=== PATIENT | male | born 1950 | race Caucasian/White ===

== ENCOUNTER 2019-10-30 10:22 | Emergency (ER) | payer BC, MEDICARE ==
[2019-10-30 10:34] VITALS: BP 146/83; PULSE 71
[2019-10-30] MEDS ORDERED: Tetracaine HCl/PF 0.5% 4 ML Bottle EYERT ONE (10:50)
--- NOTE | 2019-10-30 10:50 | EDM.PDOC ---
ED HPI GENERAL MEDICAL PROBLEM - General Chief Complaint: Eye Problems Stated Complaint: EYE COMPLAINT Time Seen by Provider: 10/30/19 10:26 Source of Information: Reports: Patient History Limitations: Reports: No Limitations - History of Present Illness INITIAL COMMENTS - FREE TEXT/NARRATIVE: Since reporting some redness in his right eye with a little pressure feeling and photophobia. No vision problems, discharge. He has noticed that he is starting with cold symptoms including cough and sore throat. - Related Data Allergies Allergy/AdvReac Type Severity Reaction Status Date / Time penicillin Allergy Hives Verified 05/30/15 13:52 Home Meds: Home Meds Fish Oil/[place]-3 Fatty Acids [Fish Oil 1,000 MG] 1 tab PO DAILY 11/14/15 [ History] Indomethacin 1 tab PO ASDIRECTED PRN 11/14/15 [History] allopurinoL [Zyloprim] 1 tab PO DAILY 11/14/15 [History] Diclofenac Potassium [Zipsor] 10/30/19 [History] Yrn/Polymyx B Sulf/Dexameth [Kfabpq-Iqexx-Klygwkxy Eye Drop] 3 drop OP QID #1 drops.susp 10/30/19 [Rx] Past Medical History Cardiovascular History: Reports: None Respiratory History: Reports: Asthma Other Respiratory History: asthma as a child Gastrointestinal History: Reports: Other (See Below) Other Gastrointestinal History: hx anal fissurectomy Genitourinary History: Reports: BPH Musculoskeletal History: Reports: Gout Neurological History: Reports: None Psychiatric History: Reports: None Endocrine/Metabolic History: Reports: None Hematologic History: Reports: None Immunologic History: Reports: None Oncologic (Cancer) History: Reports: None Dermatologic History: Reports: None - Past Surgical History Other HEENT Surgeries/Procedures: hx repair of fx jaw Musculoskeletal Surgical History: Reports: Other (See Below) Social & Family History - Family History Family Medical History: Noncontributory - Tobacco Use Smoking Status *Q: Never Smoker - Recreational Drug Use Recreational Drug Use: No ED ROS GENERAL - Review of Systems Review Of Systems: Comprehensive ROS is negative, except as noted in HPI. ED EXAM GENERAL W FULL EYE - Physical Exam Exam: See Below Exam Limited By: No Limitations General Appearance: Alert, No Apparent Distress Visual Acuity (R) 20/: 20 Visual Acuity (L) 20/: 20 Eyelids: Bilateral: Normal Appearance Conjunctiva & Sclera: Right: Injected, Left: Normal Appearance Cornea Exam: Right: Corneal Abrasion, Examined with Flourescein (Abrasion 3:00 to 9:00 under the iris), Left: Normal Appearance Extraocular Movements: Bilateral: Intact Pupillary Size: Bilateral: 4 mm Pupillary Reaction: Bilateral: Brisk Ears: Normal External Exam, Normal TMs Nose: Normal Inspection Throat/Mouth: Normal Inspection Head: Atraumatic, Normocephalic Neck: Normal Inspection Respiratory/Chest: No Respiratory Distress, Lungs Clear, Normal Breath Sounds Cardiovascular: Regular Rate, Rhythm Neurological: Alert, Oriented Psychiatric: Normal Affect, Normal Mood Skin Exam: Warm, Dry, Intact, Normal Color, No Rash Lymphatic: No Adenopathy Course - Vital Signs Last Recorded V/S: Last Vital Signs Temp 35.3 C 10/30/19 10:32 Pulse 71 10/30/19 10:32 Resp 16 10/30/19 10:32 BP 146/83 H 10/30/19 10:32 Pulse Ox 98 10/30/19 10:32 Departure - Departure Time of Disposition: 11:13 Disposition: Home, Self-Care 01 Condition: Good Clinical Impression: Corneal abrasion Conjunctivitis Qualifiers: Conjunctivitis type: acute Acute conjunctivitis type: unspecified Laterality: right Qualified Code(s): H10.31 - Unspecified acute conjunctivitis, right eye - Discharge Information *PRESCRIPTION DRUG MONITORING PROGRAM REVIEWED*: Not Applicable *COPY OF PRESCRIPTION DRUG MONITORING REPORT IN PATIENT TONO: Not Applicable Referrals: Tevin Monreal MD [Primary Care Provider] - [facility] [Outside] Additional Instructions: The following information is given to patients seen in the emergency department who are being discharged to home. This information is to outline your options for follow-up care. We provide all patients seen in our emergency department with a follow-up referral. The need for follow-up, as well as the timing and circumstances, are variable depending upon the specifics of your emergency department visit. If you don't have a primary care physician on staff, we will provide you with a referral. We always advise you to contact your personal physician following an emergency department visit to inform them of the circumstance of the visit and for follow-up with them and/or the need for any referrals to a consulting specialist. The emergency department will also refer you to a specialist when appropriate. This referral assures that you have the opportunity for follow-up care with a specialist. All of these measure are taken in an effort to provide you with optimal care, which includes your follow-up. Under all circumstances we always encourage you to contact your private physician who remains a resource for coordinating your care. When calling for follow-up care, please make the office aware that this follow-up is from your recent emergency room visit. If for any reason you are refused follow-up, please contact the [facility] Emergency Department at and asked to speak to the emergency department charge nurse. 1. Eyedrops 3 drops right eye 4 times a day 2. Increasing pain, discharge or visual problems return to ER promptly 3. If not greatly improved by Friday, see an graphic art sales representative Sepsis Event Note - Evaluation Sepsis Screening Result: No Definite Risk - Focused Exam Vital Signs: Vital Signs Temp Pulse Resp BP Pulse Ox 10/30/19 10:32 35.3 C 71 16 146/83 H 98 Date Exam was Performed: 10/30/19 Time Exam was Performed: 10:45
== END 2019-10-30 11:29 | disposition home or self-care (01) ==
LOC: MW.ED 10:22
DX: S05.01XA Injury of conjunctiva and corneal abrasion without foreign body, right eye, initial encounter (principal); H10.31 Unspecified acute conjunctivitis, right eye; M10.9 Gout, unspecified; Z88.0 Allergy status to penicillin; Z79.899 Other long term (current) drug therapy; X58.XXXA Exposure to other specified factors, initial encounter
CPT/HCPCS: 99283

== ENCOUNTER 2020-09-01 08:21 | Emergency (ER) | payer BC ==
--- NOTE | 2020-09-01 08:28 | EDM.PDOC ---
ED HPI GENERAL MEDICAL PROBLEM - General Chief Complaint: Neuro Symptoms/Deficits Stated Complaint: DIZZINESS/TINGLING L/ ARM Time Seen by Provider: 09/01/20 08:21 Source of Information: Reports: Patient History Limitations: Reports: No Limitations - History of Present Illness INITIAL COMMENTS - FREE TEXT/NARRATIVE: 69-year-old male no past medical history presents for episode of left hand tingling and episode of lightheadedness, near syncope on toilet this morning. Patient states that yesterday after work, he noted a numbness tingling sensation in his left fifth and fourth digit lasting about 10 minutes. No associated muscle weakness. No pain. Symptoms went away on their own. This morning after having a bowel movement, while sitting on the toilet, patient had episode of feeling lightheaded, blurring of vision, and unsteady when standing. He sat back down and did not lose consciousness. He denies associated chest pain, shortness of breath, fevers, cough, one-sided weakness, slurred speech, altered mental status, confusion. He notes that he is still feeling a little numbness and tingling in his left fourth and fifth digits. He notes that he recently started taking potassium, zinc, and vitamin D [id number] supplements - Related Data Allergies Allergy/AdvReac Type Severity Reaction Status Date / Time penicillin Allergy Hives Verified 09/01/20 08:48 Home Meds: Home Meds Fish Oil/[place]-3 Fatty Acids [Fish Oil 1,000 MG] 1 tab PO DAILY 11/14/15 [History] Indomethacin 1 tab PO ASDIRECTED PRN 11/14/15 [History] allopurinoL [Zyloprim] 1 tab PO DAILY 11/14/15 [History] Diclofenac Potassium [Zipsor] 10/30/19 [History] Past Medical History Cardiovascular History: Reports: None Respiratory History: Reports: Asthma Other Respiratory History: asthma as a child Gastrointestinal History: Reports: Other (See Below) Other Gastrointestinal History: hx anal fissurectomy Genitourinary History: Reports: BPH Musculoskeletal History: Reports: Gout Neurological History: Reports: None Psychiatric History: Reports: None Endocrine/Metabolic History: Reports: None Hematologic History: Reports: None Immunologic History: Reports: None Oncologic (Cancer) History: Reports: None Dermatologic History: Reports: None - Past Surgical History Other HEENT Surgeries/Procedures: hx repair of fx jaw Musculoskeletal Surgical History: Reports: Other (See Below) Social & Family History - Family History Family Medical History: Noncontributory ED ROS GENERAL - Review of Systems Review Of Systems: Comprehensive ROS is negative, except as noted in HPI. ED EXAM, GENERAL - Physical Exam Exam: See Below Exam Limited By: No Limitations General Appearance: Alert, WD/WN, No Apparent Distress Eye Exam: Bilateral Eye: EOMI, PERRL Ears: Normal External Exam Nose: Normal Inspection Throat/Mouth: Normal Inspection, Normal Voice, No Airway Compromise Head: Atraumatic, Normocephalic Neck: Normal Inspection Respiratory/Chest: No Respiratory Distress, Lungs Clear, Normal Breath Sounds, No Accessory Muscle Use Cardiovascular: Normal Peripheral Pulses, Regular Rate, Rhythm, No Edema Extremities: Normal Inspection Neurological: Alert, Oriented, CN II-XII Intact, Normal Cognition, Normal Gait, No Motor/Sensory Deficits, Other (normal [id number]) Psychiatric: Normal Affect, Normal Mood Skin Exam: Warm, Dry, Intact #1 Interpretation EKG Date: 09/01/20 Time: 08:41 Rhythm: NSR Rate (Beats/Min): 70 [place]: Normal P-Wave: Present QRS: Normal ST-T: Normal QT: Normal OH/PQ Interval: 155 Comparison: NA - No Prior EKG EKG Interpretation Comments: non-ischemic electrocardiogram Course - Vital Signs Last Recorded V/S: Last Vital Signs Temp 96.1 F L 09/01/20 08:49 Pulse 77 09/01/20 08:49 Resp 20 09/01/20 08:49 BP 166/82 H 09/01/20 08:49 Pulse Ox 99 09/01/20 08:49 - Orders/Labs/Meds Orders: Active Orders 24 hr Category Date Time Status EKG 12 Lead [EKG Documentation Completion] [RC] STAT Care 09/01/20 08:58 Active Labs: Laboratory Tests 09/01/20 09/01/20 Range/Units 08:37 08:37 WBC 6.66 (4.0-11.0) K/uL RBC 4.48 L (4.50-5.90) M/uL Hgb 14.1 (13.0-17.0) g/dL Hct 42.9 (38.0-50.0) % MCV 95.8 (80.0-98.0) fL MCH 31.5 (27.0-32.0) pg MCHC 32.9 (31.0-37.0) g/dL RDW Std Deviation 50.6 (28.0-62.0) fl RDW Coeff of Eliaazr 15 (11.0-15.0) % Plt Count 356 (150-400) K/uL MPV 9.50 (7.40-12.00) fL Neut % (Auto) 58.5 (48.0-80.0) % Lymph % (Auto) 27.9 (16.0-40.0) % [place] % (Auto) 9.0 (0.0-15.0) % Eos % (Auto) 3.5 (0.0-7.0) % Baso % (Auto) 1.1 (0.0-1.5) % Neut # (Auto) 3.9 (1.4-5.7) K/uL Lymph # (Auto) 1.9 (0.6-2.4) K/uL [place] # (Auto) 0.6 (0.0-0.8) K/uL Eos # (Auto) 0.2 (0.0-0.7) K/uL Baso # (Auto) 0.1 (0.0-0.1) K/uL Nucleated RBC % 0.0 /100WBC Nucleated RBCs # 0 K/uL Sodium 138 (136-148) mmol/L Potassium 4.2 (3.5-5.1) mmol/L Chloride 105 (98-107) mmol/L Carbon Dioxide 25.5 (21.0-32.0) mmol/L BUN 11 (7.0-18.0) mg/dL Creatinine 0.9 (0.8-1.3) mg/dL Est Cr Clr Drug Dosing 82.24 mL/min Estimated GFR (MDRD) > 60.0 ml/min Glucose 102 (74-106) mg/dL Calcium 8.8 (8.5-10.1) mg/dL Magnesium 2.0 (1.8-2.4) mg/dL Total Bilirubin 0.5 (0.2-1.0) mg/dL AST 34 (15-37) IU/L ALT 35 (14-63) IU/L Alkaline Phosphatase 129 H (46-116) U/L Troponin I < 0.050 (0.000-0.056) ng/mL Total Protein 6.9 (6.4-8.2) g/dL Albumin 3.5 (3.4-5.0) g/dL Globulin 3.4 (2.6-4.0) g/dL Albumin/Globulin Ratio 1.0 (0.9-1.6) TSH 3rd Generation 2.91 (0.36-3.74) uIU/mL - Re-Assessments/Exams Free Text/Narrative Re-Assessment/Exam: 09/01/20 09:03 Patient presents with left hand tingling, lightheadedness, near syncopal episode. Patient's left hand tingling sensation is limited to the fifth digit and the medial aspect of fourth digit. This is in the distribution of the ulnar nerve, raising suspicion for a peripheral neuropathy rather than a central cause. Patient's episode on the toilet this morning is most likely secondary to a vasovagal episode. His EKG is nonischemic and without cardiac dysrhythmia. We will follow-up labs including electrolytes and troponin. We will get a head CT. If results are unremarkable, anticipate discharge with primary care physician follow-up. 09/01/20 09:50 Patient's labs and head CT are all unremarkable. Will discharge patient home with primary care physician follow-up. Return precautions were discussed at length and provided an educational handout. Departure - Departure Time of Disposition: 09:51 Disposition: Home, Self-Care 01 Condition: Good Clinical Impression: Vasovagal episode - Discharge Information Instructions: Near-Syncope, [id number] Referrals: Tevin Monreal MD [Primary Care Provider] - Forms: ED Department Discharge Additional Instructions: Your work-up in the emergency department was unremarkable. It is likely that you suffered from a vasovagal episode. You should follow up with your primary care physician for further work-up. If you experience any chest pain, difficulty breathing, episodes of passing out you should return to the emergency department for reassessment. The following information is given to patients seen in the emergency department who are being discharged to home. This information is to outline your options for follow-up care. We provide all patients seen in our emergency department with a follow-up referral. The need for follow-up, as well as the timing and circumstances, are variable depending upon the specifics of your emergency department visit. If you don't have a primary care physician on staff, we will provide you with a referral. We always advise you to contact your personal physician following an emergency department visit to inform them of the circumstance of the visit and for follow-up with them and/or the need for any referrals to a consulting specialist. The emergency department will also refer you to a specialist when appropriate. This referral assures that you have the opportunity for follow-up care with a specialist. All of these measure are taken in an effort to provide you with optimal care, which includes your follow-up. Under all circumstances we always encourage you to contact your private physician who remains a resource for coordinating your care. When calling for follow-up care, please make the office aware that this follow-up is from your recent emergency room visit. If for any reason you are refused follow-up, please contact the [facility] Emergency Department at and asked to speak to the emergency department charge nurse. Please follow up with your primary care physician. If you do not have a primary care physician, see below: [facility] [address] [place] [id number] [facility] [address] [place] [id number] Sepsis Event Note (ED) - Focused Exam Vital Signs: Vital Signs Temp Pulse Resp BP Pulse Ox 09/01/20 08:49 96.1 F L 77 20 166/82 H 99 - My Orders Last 24 Hours: My Active Orders 09/01/20 08:58 EKG 12 Lead [EKG Documentation Completion] [RC] STAT - Assessment/Plan Last 24 Hours: My Active Orders 09/01/20 08:58 EKG 12 Lead [EKG Documentation Completion] [RC] STAT
[2020-09-01 09:24] LABS: BLOOD UREA NITROGEN,BUN 11 mg/dL (7.0-18.0); CARBON DIOXIDE,CO2 25.5 mmol/L (21.0-32.0); CHLORIDE,CL 105 mmol/L (98-107); GLUCOSE RANDOM 102 mg/dL (74-106); POTASSIUM,K 4.2 mmol/L (3.5-5.1); SODIUM,NA 138 mmol/L (136-148)
--- NOTE | 2020-09-01 09:47 | CT ---
HISTORY: Left arm numbness. TECHNIQUE: Noncontrast head CT. COMPARISON: No prior. FINDINGS: There is no acute intracranial hemorrhage or acute ischemic infarct. No mass effect or midline shift. No hydrocephalus. No extra-axial collection or hematoma. No acute loss of mack-white differentiation. The mastoid air cells are clear. The paranasal sinuses are clear with the exception of a small mucous retention cyst or polyp within the left maxillary sinus posteriorly. There is no acute skull fracture. IMPRESSION: No acute intracranial disease. Dictated by Geronimo Long MD @ 09/01/2020 9:45:37 AM Please note that all CT scans at this facility use dose modulation, iterative reconstruction, and/or weight-based dosing when appropriate to reduce radiation dose to as low as reasonably achievable. Dictated by: Geronimo Long MD @ 09/01/2020 09:45:41 (Electronically Signed)
[2020-09-01 10:36] VITALS: BP 163/93; PULSE 73
== END 2020-09-01 10:37 | disposition home or self-care (01) ==
LOC: MW.ED 08:21
DX: R55 Syncope and collapse (principal); J45.909 Unspecified asthma, uncomplicated; M10.9 Gout, unspecified; Z79.899 Other long term (current) drug therapy
CPT/HCPCS: 70450; 70450-26; 80053; 83735; 84443; 84484; 85025; 93005; 93010; 99284; 99284-25

== ENCOUNTER 2020-09-02 09:37 | Observation (INO) | payer BC ==
[2020-09-02] MEDS ORDERED: LORazepam 2 MG/ML SDV IVPUSH ONE ×2 (09:58→15:23)
[2020-09-02] MEDS ORDERED: Famotidine 20 MG/2 ML SDV IVPUSH ONE (09:58)
[2020-09-02] MEDS ORDERED: Sodium Chloride 0.9% 10 ML Syringe FLUSH PRN (09:58)
[2020-09-02] MEDS ORDERED: Sodium Chloride 0.9% 1,000 ML IV ONE ×2 (09:58→11:21)
[2020-09-02] MEDS ORDERED: Ondansetron 4 MG/2 ML SDV IVPUSH ONE ×2 (09:58→15:23)
--- NOTE | 2020-09-02 10:03 | EDM.PDOC ---
ED HPI GENERAL MEDICAL PROBLEM - General Chief Complaint: Gastrointestinal Problem Stated Complaint: DIZZY VOMITING Time Seen by Provider: 09/02/20 09:40 Source of Information: Reports: Patient History Limitations: Reports: No Limitations - History of Present Illness INITIAL COMMENTS - FREE TEXT/NARRATIVE: 69-year-old male presents for dizziness, nausea, vomiting, diarrhea, abdominal cramping pains, right arm numbness and tingling. Patient was seen yesterday for dizziness and left arm tingling. Had work-up including lab work and CT head which were unremarkable. After going home, in the evening patient started to develop nausea, vomiting, diarrhea, abdominal cramping pains. This morning became severe prompting him to seek medical attention. Emesis is nonbloody. Denies fevers, cough, chest pain. - Related Data Allergies Allergy/AdvReac Type Severity Reaction Status Date / Time penicillin Allergy Hives Verified 09/02/20 09:45 Home Meds: Home Meds Fish Oil/[place]-3 Fatty Acids [Fish Oil 1,000 MG] 1 tab PO DAILY 11/14/15 [History] allopurinoL [Zyloprim] 1 tab PO DAILY 11/14/15 [History] Diclofenac Potassium [Zipsor] 10/30/19 [History] Past Medical History Cardiovascular History: Reports: None Respiratory History: Reports: Asthma Other Respiratory History: asthma as a child Gastrointestinal History: Reports: Other (See Below) Other Gastrointestinal History: hx anal fissurectomy Genitourinary History: Reports: BPH Musculoskeletal History: Reports: Gout Other Musculoskeletal History: chronic pain Neurological History: Reports: None Psychiatric History: Reports: None Endocrine/Metabolic History: Reports: None Hematologic History: Reports: None Immunologic History: Reports: None Oncologic (Cancer) History: Reports: None Dermatologic History: Reports: None - Infectious Disease History Infectious Disease History: Reports: Chicken Pox - Past Surgical History HEENT Surgical History: Reports: Tonsillectomy Other HEENT Surgeries/Procedures: hx repair of fx jaw Musculoskeletal Surgical History: Reports: Other (See Below) Social & Family History - Family History Family Medical History: Noncontributory - Tobacco Use Tobacco Use Status *Q: Never Tobacco User - Recreational Drug Use Recreational Drug Use: No ED ROS GENERAL - Review of Systems Review Of Systems: Comprehensive ROS is negative, except as noted in HPI. ED EXAM, GENERAL - Physical Exam Exam: See Below Exam Limited By: No Limitations General Appearance: Alert, Other (Eyes closed, tachypneic, anxious appearing) Eye Exam: Bilateral Eye: PERRL Ears: Normal External Exam Throat/Mouth: Normal Voice, No Airway Compromise Head: Atraumatic, Normocephalic Neck: Normal Inspection Respiratory/Chest: No Respiratory Distress, Lungs Clear, Normal Breath Sounds, No Accessory Muscle Use Cardiovascular: Normal Peripheral Pulses, Regular Rate, Rhythm GI/Abdominal: Soft, Other (Diffuse tenderness to palpation without guarding or rebound) Extremities: Normal Inspection Neurological: Alert Psychiatric: Normal Affect, Normal Mood, Anxious Skin Exam: Warm, Dry, Intact, Normal Color #1 Interpretation EKG Date: 09/02/20 Time: 09:58 Rhythm: NSR Rate (Beats/Min): 59 [place]: Normal P-Wave: Present QRS: Normal ST-T: Normal QT: Normal [place]/PQ Interval: 146 Comparison: NA - No Prior EKG Course - Vital Signs Last Recorded V/S: Last Vital Signs Temp 96.9 F 09/02/20 09:45 Pulse 79 09/02/20 09:45 Resp 17 09/02/20 09:45 BP 129/70 09/02/20 09:45 Pulse Ox 100 09/02/20 09:45 - Orders/Labs/Meds Orders: Active Orders 24 hr Category Date Time Status Cardiac Monitoring [RC] . DIRECTED Care 09/02/20 09:59 Active EKG Documentation Completion [RC] STAT Care 09/02/20 09:58 Active Orthostatic Vital Signs [RC] ASDIRECTED Care 09/02/20 15:16 Ordered Pulse Oximetry [RC] ASDIRECTED Care 09/02/20 09:59 Active PROCALCITONIN [REF] Stat Lab 09/02/20 09:45 Received UA W/ARGELIA RFLX IF INDICATED [URIN] Stat Lab 09/02/20 10:00 Ordered Sodium Chloride 0.9% [Saline Flush] Med 09/02/20 09:58 Active 10 ml FLUSH ASDIRECTED PRN Sodium Chloride 0.9% [Saline Flush] Med 09/02/20 09:58 Active 2.5 ml FLUSH ASDIRECTED PRN Saline Lock Insert [OM.PC] Stat Oth 09/02/20 09:59 Ordered Medication Orders Sodium Chloride (Saline Flush) 10 ml FLUSH ASDIRECTED PRN PRN Reason: Keep Vein Open Last Admin: 09/02/20 13:09 Dose: 10 ml Documented by: TOSHIA Sodium Chloride (Saline Flush) 2.5 ml FLUSH ASDIRECTED PRN PRN Reason: Keep Vein Open Last Admin: 09/02/20 13:09 Dose: 2.5 ml Documented by: Admin: 09/02/20 10:08 Dose: 2.5 ml Documented by: LIZ Labs: Laboratory Tests 09/02/20 09/02/20 09/02/20 Range/Units 09:45 09:45 09:45 WBC 10.52 (4.0-11.0) K/uL RBC 4.48 L (4.50-5.90) M/uL Hgb 14.0 (13.0-17.0) g/dL Hct 42.2 (38.0-50.0) % MCV 94.2 (80.0-98.0) fL MCH 31.3 (27.0-32.0) pg MCHC 33.2 (31.0-37.0) g/dL RDW Std Deviation 49.1 (28.0-62.0) fl RDW Coeff of Eliazar 14 (11.0-15.0) % Plt Count 359 (150-400) K/uL MPV 9.20 (7.40-12.00) fL Neut % (Auto) 66.3 (48.0-80.0) % Lymph % (Auto) 26.6 (16.0-40.0) % Ada % (Auto) 6.4 (0.0-15.0) % Eos % (Auto) 0.4 (0.0-7.0) % Baso % (Auto) 0.3 (0.0-1.5) % Neut # (Auto) 7.0 H (1.4-5.7) K/uL Lymph # (Auto) 2.8 H (0.6-2.4) K/uL Ada # (Auto) 0.7 (0.0-0.8) K/uL Eos # (Auto) 0.0 (0.0-0.7) K/uL Baso # (Auto) 0.0 (0.0-0.1) K/uL Nucleated RBC % 0.0 /100WBC Nucleated RBCs # 0 K/uL Lactate 3.5 H* (0.20-2.00) mmol/L Sodium 138 (136-148) mmol/L Potassium 3.7 (3.5-5.1) mmol/L Chloride 103 (98-107) mmol/L Carbon Dioxide 19.9 L (21.0-32.0) mmol/L BUN 13 (7.0-18.0) mg/dL Creatinine 1.0 (0.8-1.3) mg/dL Est Cr Clr Drug Dosing 74.01 mL/min Estimated GFR (MDRD) > 60.0 ml/min Glucose 180 H (74-106) mg/dL POC Glucose (60-110) mg/dL Calcium 9.1 (8.5-10.1) mg/dL Phosphorus 1.7 L (2.6-4.7) mg/dL Magnesium 1.9 (1.8-2.4) mg/dL Total Bilirubin 0.6 (0.2-1.0) mg/dL AST 16 (15-37) IU/L ALT 30 (14-63) IU/L Alkaline Phosphatase 140 H (46-116) U/L Lactate Dehydrogenase (81-234) U/L Troponin I < 0.050 (0.000-0.056) ng/mL C-Reactive Protein < 0.20 (0.00-0.90) mg/dL Total Protein 6.9 (6.4-8.2) g/dL Albumin 3.7 (3.4-5.0) g/dL Globulin 3.2 (2.6-4.0) g/dL Albumin/Globulin Ratio 1.2 (0.9-1.6) Lipase 64 L (73-393) U/L SARS-CoV-2 RNA ([facility]) (NEGATIVE) 09/02/20 09/02/20 09/02/20 Range/Units 09:55 13:46 14:25 WBC (4.0-11.0) K/uL RBC (4.50-5.90) M/uL Hgb (13.0-17.0) g/dL Hct (38.0-50.0) % MCV (80.0-98.0) fL MCH (27.0-32.0) pg MCHC (31.0-37.0) g/dL RDW Std Deviation (28.0-62.0) fl RDW Coeff of Eliazar (11.0-15.0) % Plt Count (150-400) K/uL MPV (7.40-12.00) fL Neut % (Auto) (48.0-80.0) % Lymph % (Auto) (16.0-40.0) % Ada % (Auto) (0.0-15.0) % Eos % (Auto) (0.0-7.0) % Baso % (Auto) (0.0-1.5) % Neut # (Auto) (1.4-5.7) K/uL Lymph # (Auto) (0.6-2.4) K/uL Ada # (Auto) (0.0-0.8) K/uL Eos # (Auto) (0.0-0.7) K/uL Baso # (Auto) (0.0-0.1) K/uL Nucleated RBC % /100WBC Nucleated RBCs # K/uL Lactate (0.20-2.00) mmol/L Sodium (136-148) mmol/L Potassium (3.5-5.1) mmol/L Chloride (98-107) mmol/L Carbon Dioxide (21.0-32.0) mmol/L BUN (7.0-18.0) mg/dL Creatinine (0.8-1.3) mg/dL Est Cr Clr Drug Dosing mL/min Estimated GFR (MDRD) ml/min Glucose (74-106) mg/dL POC Glucose 148 H (60-110) mg/dL Calcium (8.5-10.1) mg/dL Phosphorus (2.6-4.7) mg/dL Magnesium (1.8-2.4) mg/dL Total Bilirubin (0.2-1.0) mg/dL AST (15-37) IU/L ALT (14-63) IU/L Alkaline Phosphatase (46-116) U/L Lactate Dehydrogenase 193 (81-234) U/L Troponin I (0.000-0.056) ng/mL C-Reactive Protein (0.00-0.90) mg/dL Total Protein (6.4-8.2) g/dL Albumin (3.4-5.0) g/dL Globulin (2.6-4.0) g/dL Albumin/Globulin Ratio (0.9-1.6) Lipase (73-393) U/L SARS-CoV-2 RNA ([facility]) NEGATIVE (NEGATIVE) 09/02/20 Range/Units 14:25 WBC (4.0-11.0) K/uL RBC (4.50-5.90) M/uL Hgb (13.0-17.0) g/dL Hct (38.0-50.0) % MCV (80.0-98.0) fL MCH (27.0-32.0) pg MCHC (31.0-37.0) g/dL RDW Std Deviation (28.0-62.0) fl RDW Coeff of Eliazar (11.0-15.0) % Plt Count (150-400) K/uL MPV (7.40-12.00) fL Neut % (Auto) (48.0-80.0) % Lymph % (Auto) (16.0-40.0) % Ada % (Auto) (0.0-15.0) % Eos % (Auto) (0.0-7.0) % Baso % (Auto) (0.0-1.5) % Neut # (Auto) (1.4-5.7) K/uL Lymph # (Auto) (0.6-2.4) K/uL Ada # (Auto) (0.0-0.8) K/uL Eos # (Auto) (0.0-0.7) K/uL Baso # (Auto) (0.0-0.1) K/uL Nucleated RBC % /100WBC Nucleated RBCs # K/uL Lactate 1.0 (0.20-2.00) mmol/L Sodium (136-148) mmol/L Potassium (3.5-5.1) mmol/L Chloride (98-107) mmol/L Carbon Dioxide (21.0-32.0) mmol/L BUN (7.0-18.0) mg/dL Creatinine (0.8-1.3) mg/dL Est Cr Clr Drug Dosing mL/min Estimated GFR (MDRD) ml/min Glucose (74-106) mg/dL POC Glucose (60-110) mg/dL Calcium (8.5-10.1) mg/dL Phosphorus (2.6-4.7) mg/dL Magnesium (1.8-2.4) mg/dL Total Bilirubin (0.2-1.0) mg/dL AST (15-37) IU/L ALT (14-63) IU/L Alkaline Phosphatase (46-116) U/L Lactate Dehydrogenase (81-234) U/L Troponin I (0.000-0.056) ng/mL C-Reactive Protein (0.00-0.90) mg/dL Total Protein (6.4-8.2) g/dL Albumin (3.4-5.0) g/dL Globulin (2.6-4.0) g/dL Albumin/Globulin Ratio (0.9-1.6) Lipase (73-393) U/L SARS-CoV-2 RNA ([facility]) (NEGATIVE) Meds: Medications Generic Name Dose Route Start Last Admin Trade Name Castro PRN Reason Stop Dose Admin Sodium Chloride 10 ml 09/02/20 09:58 09/02/20 13:09 Saline Flush FLUSH 10 ml ASDIRECTED PRN Administration Keep Vein Open Sodium Chloride 2.5 ml 09/02/20 09:58 09/02/20 13:09 Saline Flush FLUSH 2.5 ml ASDIRECTED PRN Administration Keep Vein Open Discontinued Medications Generic Name Dose Route Start Last Admin Trade Name Castro PRN Reason Stop Dose Admin Famotidine 20 mg 09/02/20 09:58 09/02/20 13:08 Pepcid IVPUSH 09/02/20 09:59 20 mg ONETIME ONE Administration Sodium Chloride 1,000 mls @ 999 mls/hr 09/02/20 09:58 09/02/20 10:06 Normal Saline IV 09/02/20 10:58 999 mls/hr .Bolus ONE Administration Sodium Chloride 1,000 mls @ 999 mls/hr 09/02/20 11:21 09/02/20 13:08 Normal Saline IV 09/02/20 12:21 999 mls/hr .Bolus ONE Administration Iopamidol 100 ml 09/02/20 12:08 09/02/20 12:09 Isovue Multipack-370 (76%) IVPUSH 09/02/20 12:09 100 ml ONETIME ONE Administration Lorazepam 0.5 mg 09/02/20 09:58 09/02/20 10:24 Ativan IVPUSH 09/02/20 09:59 0.5 mg ONETIME ONE Administration Ondansetron HCl 4 mg 09/02/20 09:58 09/02/20 10:24 Zofran IVPUSH 09/02/20 09:59 4 mg ONETIME ONE Administration - Re-Assessments/Exams Free Text/Narrative Re-Assessment/Exam: 09/02/20 10:06 We will get labs, CT abdomen pelvis, chest x-ray, COVID-19 swab. Will treat symptomatically with IV fluid bolus, Zofran, Pepcid, Ativan. EKG is nonischemic 09/02/20 12:45 Labs grossly unremarkable aside from elevated lactate at 3.5. 2 L IV fluid bolus is going. We will follow up CT imaging results, repeat lactate, COVID-19 swab, and disposition accordingly. 09/02/20 13:22 Patient is mildly symptomatically improved, but still feels very dizzy and nauseated. He is requesting water. CT imaging is negative for acute pathology. Second liter IV fluid bolus has been given. We will follow-up repeat lactate, COVID-19 swab and disposition accordingly. 09/02/20 15:16 Lactate is downtrending to 1.0. Covid swab is negative. Patient is still feeling very dizzy and nauseated. He was able to tolerate some sips of water. He states that he is scared to set up because he is afraid he is can get dizzy again. Considering patient's 2 times ER visits and no resolution of symptoms, will admit patient to observation for monitoring and further work-up as needed. Patient is agreeable with plan. Departure - Departure Time of Disposition: 15:17 Disposition: Admitted As Inpatient 68 Condition: Good Clinical Impression: Dizziness Vomiting Qualifiers: Vomiting type: unspecified Vomiting Intractability: intractable Nausea presence: with nausea Qualified Code(s): R11.2 - Nausea with vomiting, unspecified - Discharge Information Referrals: PCP,None [Primary Care Provider] - Forms: ED Department Discharge Sepsis Event Note (ED) - Evaluation Sepsis Screening Result: No Definite Risk - Focused Exam Vital Signs: Vital Signs Temp Pulse Resp BP Pulse Ox 09/02/20 09:45 96.9 F 79 17 129/70 100 - My Orders Last 24 Hours: My Active Orders 09/02/20 09:45 PROCALCITONIN [REF] Stat 09/02/20 09:58 EKG Documentation Completion [RC] STAT Sodium Chloride 0.9% [Saline Flush] 10 ml FLUSH ASDIRECTED PRN Sodium Chloride 0.9% [Saline Flush] 2.5 ml FLUSH ASDIRECTED PRN 09/02/20 09:59 Cardiac Monitoring [RC] . DIRECTED Pulse Oximetry [RC] ASDIRECTED Saline Lock Insert [OM.PC] Stat 09/02/20 10:00 UA W/ARGELIA RFLX IF INDICATED [URIN] Stat 09/02/20 15:16 Orthostatic Vital Signs [RC] ASDIRECTED - Assessment/Plan Last 24 Hours: My Active Orders 09/02/20 09:45 PROCALCITONIN [REF] Stat 09/02/20 09:58 EKG Documentation Completion [RC] STAT Sodium Chloride 0.9% [Saline Flush] 10 ml FLUSH ASDIRECTED PRN Sodium Chloride 0.9% [Saline Flush] 2.5 ml FLUSH ASDIRECTED PRN 09/02/20 09:59 Cardiac Monitoring [RC] . DIRECTED Pulse Oximetry [RC] ASDIRECTED Saline Lock Insert [OM.PC] Stat 09/02/20 10:00 UA W/ARGELIA RFLX IF INDICATED [URIN] Stat 09/02/20 15:16 Orthostatic Vital Signs [RC] ASDIRECTED
[2020-09-02] MEDS: Sodium Chloride 0.9% 2.5 ML Syringe FLUSH PRN ×2 (10:08→13:09)
[2020-09-02 10:22] LABS: BLOOD UREA NITROGEN,BUN 13 mg/dL (7.0-18.0); CARBON DIOXIDE,CO2 19.9 mmol/L (21.0-32.0); CHLORIDE,CL 103 mmol/L (98-107); GLUCOSE RANDOM 180 mg/dL (74-106); LIPASE 64 U/L (73-393); POTASSIUM,K 3.7 mmol/L (3.5-5.1); SODIUM,NA 138 mmol/L (136-148)
--- NOTE | 2020-09-02 10:49 | CR ---
INDICATION: Flu-like symptoms. TECHNIQUE: Chest 1 view. COMPARISON: None FINDINGS: Cardiovascular and mediastinum: Heart size and vasculature are normal in caliber and appearance. Mediastinum is within normal limits. Lungs and pleural space: Lungs are clear. No sign of infiltrate or mass. No sign of pleural effusion. No pneumothorax. Bones and soft tissues: No significant findings. IMPRESSION: Lungs are clear. Dictated by Rich Alvarado MD @ Sep 02 2020 10:47AM Signed by Dr. Rich Alvarado @ Sep 02 2020 10:48AM
[2020-09-02] MEDS ORDERED: Iopamidol 755 MG/ML 500 ML Multipack Bottle IVPUSH ONE ×2 (12:08→16:47)
--- NOTE | 2020-09-02 12:50 | CT ---
Indication: Patient with nausea and vomiting. Abdominal pain. Technique: Multiple contiguous axial images were obtained from the lung bases through the symphysis pubis after the intravenous administration of 100 milliliters Isovue 370. Please note that all CT scans at this facility use dose modulation, iterative reconstruction, and/or weight-based dosing when appropriate to reduce radiation dose to as low as reasonably achievable. Comparison: None Findings: The lung bases are clear. Heart is normal in size. No pericardial effusion. Diffuse fatty infiltration of the liver is identified. No intrahepatic biliary ductal dilatation is identified. The spleen, pancreas, gallbladder, adrenals, and kidneys are normal. No intrahepatic biliary ductal dilatation is identified. No hydronephrosis is identified. Vascular calcifications are identified. In the pelvis, the prostate gland is borderline in size. Bilateral fat containing inguinal hernias are identified. Prostatic calcifications are identified. The urinary bladder it is grossly normal. The appendix is not clearly identified. The small and large bowel are normal in caliber. Minimal sigmoid diverticulosis is identified. There is no evidence of diverticulitis. The transverse and descending colon are decompressed. No free air or free fluid is identified within the abdomen or pelvis. No lytic or blastic lesions of the spine are identified. Impression: Diffuse fatty infiltration of the liver. Please note that all CT scans at this facility use dose modulation, iterative reconstruction, and/or weight-based dosing when appropriate to reduce radiation dose to as low as reasonably achievable. Dictated by Margarita Lehman MD @ Sep 02 2020 12:36PM Signed by Dr. Margarita Lehman @ Sep 02 2020 12:49PM
[2020-09-02] MEDS ORDERED: Alum Hydrox/Mag Hydrox/Simeth 15 ML, Lidocaine 2% 5 ML PO ONE ×2 (15:23)
[2020-09-02] MEDS ORDERED: Ondansetron 4 MG/2 ML SDV IVPUSH PRN (16:07)
[2020-09-02] MEDS ORDERED: Acetaminophen 325 MG Tab PO PRN (16:07)
[2020-09-02] MEDS ORDERED: Enoxaparin 40 MG/0.4 ML Syringe SUBCUT SCH ×2 (16:15→21:00)
[2020-09-02] MEDS ORDERED: Lactated Ringers 1,000 ML IV SCH (16:15)
--- NOTE | 2020-09-02 16:20 | PCM.HP.2 ---
H&P History of Present Illness - General Date of Service: 09/02/20 Admit Problem/Dx: Admission Diagnosis/Problem Admission Diagnosis/Problem Vomiting Source of Information: Patient History Limitations: Reports: No Limitations - History of Present Illness Initial Comments - Free Text/Narative: 69-year-old male presents complaining of nausea, vomiting and abdominal cramping for the past 3 days. He has a PMH of gout and BPH. Patient reports that whenever he changes positions he starts feeling very nauseated and dizzy. He is not sure if he experiences a "room spinning" sensation. He reports vomiting 4 times this morning. The vomit was non-bloody. He has not had any diarrhea. He also reports having numbness in his right 4th and 5th fingers today. Yesterday, he reports chavez ving numbness in his left hand 4th and 5th fingers. Of note, patient presented to the ER yesterday with similar complaints. CT head was negative and lab work was unremarkable. He denies having any fevers, chills, sore throat, cough, SOB, chest pain, blood in stool or blood in urine. In the ER, EKG was unremarkable. CBC and CMP were unremarkable. Lactate level 3.5. Troponin negative. COVID19 test negative. CXR and CT abdomen were both negative. Patient given 2 L IV NS bolus, pepcid and zofran. Lactate level was 1 after fluid bolus. Patient was admitted for further evaluation and treatment. - Related Data Allergies/Adverse Reactions: Allergies Allergy/AdvReac Type Severity Reaction Status Date / Time penicillin Allergy Hives Verified 09/02/20 09:45 Home Medications: Home Meds Fish Oil/[place]-3 Fatty Acids [Fish Oil 1,000 MG] 1 tab PO DAILY 11/14/15 [History] allopurinoL [Zyloprim] 1 tab PO DAILY 11/14/15 [History] Diclofenac Potassium [Zipsor] 10/30/19 [History] Past Medical History Cardiovascular History: Reports: None Respiratory History: Reports: Asthma Other Respiratory History: asthma as a child Gastrointestinal History: Reports: Other (See Below) Other Gastrointestinal History: hx anal fissurectomy Genitourinary History: Reports: BPH Musculoskeletal History: Reports: Gout Other Musculoskeletal History: chronic pain Neurological History: Reports: None Psychiatric History: Reports: None Endocrine/Metabolic History: Reports: None Hematologic History: Reports: None Immunologic History: Reports: None Oncologic (Cancer) History: Reports: None Dermatologic History: Reports: None - Infectious Disease History Infectious Disease History: Reports: Chicken Pox - Past Surgical History HEENT Surgical History: Reports: Tonsillectomy Other HEENT Surgeries/Procedures: hx repair of fx jaw Musculoskeletal Surgical History: Reports: Other (See Below) Social & Family History - Family History Family Medical History: Noncontributory - Tobacco Use Tobacco Use Status *Q: Never Tobacco User - Recreational Drug Use Recreational Drug Use: No H&P Review of Systems - Review of Systems: Review Of Systems: Comprehensive ROS is negative, except as noted in HPI. Exam - Exam Exam: See Below - Vital Signs Vital Signs: Last Vital Signs Temp 36.1 C 09/02/20 09:45 Pulse 79 09/02/20 16:00 Resp 17 09/02/20 16:00 BP 166/74 H 09/02/20 16:00 Pulse Ox 100 09/02/20 16:00 Orthostatic Blood Pressure [ 147/70 Supine] Orthostatic Blood Pressure [ 171/89 Sitting] Weight: 90.718 kg - Exam General: Alert, Oriented, Cooperative, Other (NAD) HEENT: Conjunctiva Clear, EOMI, Hearing Intact, Pupils Equal, Pupils Reactive Neck: Supple, Trachea Midline Lungs: Clear to Auscultation, Normal Respiratory Effort Cardiovascular: Regular Rate, Regular Rhythm GI/Abdominal Exam: Normal Bowel Sounds, Soft, No Distention, Other (mild suprapubic ttp) Extremities: Normal Inspection, No Pedal Edema Peripheral Pulses: 2+: Radial (L), Radial (R) Skin: Warm, Dry, Intact Neurological: Cranial Nerves Intact, Strength Equal Bilateral, Normal Speech, Normal Tone Neuro Extensive - Mental Status: Alert, Oriented x3, Normal Mood/Affect Psychiatric: Alert, Normal Affect, Normal Mood - Patient Data Lab Results Last 24 hrs: Laboratory Results - last 24 hr 09/02/20 09/02/20 09/02/20 Range/Units 09:45 09:45 09:45 WBC 10.52 (4.0-11.0) K/uL RBC 4.48 L (4.50-5.90) M/uL Hgb 14.0 (13.0-17.0) g/dL Hct 42.2 (38.0-50.0) % MCV 94.2 (80.0-98.0) fL MCH 31.3 (27.0-32.0) pg MCHC 33.2 (31.0-37.0) g/dL RDW Std Deviation 49.1 (28.0-62.0) fl RDW Coeff of Eliazar 14 (11.0-15.0) % Plt Count 359 (150-400) K/uL MPV 9.20 (7.40-12.00) fL Neut % (Auto) 66.3 (48.0-80.0) % Lymph % (Auto) 26.6 (16.0-40.0) % [place] % (Auto) 6.4 (0.0-15.0) % Eos % (Auto) 0.4 (0.0-7.0) % Baso % (Auto) 0.3 (0.0-1.5) % Neut # (Auto) 7.0 H (1.4-5.7) K/uL Lymph # (Auto) 2.8 H (0.6-2.4) K/uL [place] # (Auto) 0.7 (0.0-0.8) K/uL Eos # (Auto) 0.0 (0.0-0.7) K/uL Baso # (Auto) 0.0 (0.0-0.1) K/uL Nucleated RBC % 0.0 /100WBC Nucleated RBCs # 0 K/uL Lactate 3.5 H* (0.20-2.00) mmol/L Sodium 138 (136-148) mmol/L Potassium 3.7 (3.5-5.1) mmol/L Chloride 103 (98-107) mmol/L Carbon Dioxide 19.9 L (21.0-32.0) mmol/L BUN 13 (7.0-18.0) mg/dL Creatinine 1.0 (0.8-1.3) mg/dL Est Cr Clr Drug Dosing 74.01 mL/min Estimated GFR (MDRD) > 60.0 ml/min Glucose 180 H (74-106) mg/dL POC Glucose (60-110) mg/dL Calcium 9.1 (8.5-10.1) mg/dL Phosphorus 1.7 L (2.6-4.7) mg/dL Magnesium 1.9 (1.8-2.4) mg/dL Total Bilirubin 0.6 (0.2-1.0) mg/dL AST 16 (15-37) IU/L ALT 30 (14-63) IU/L Alkaline Phosphatase 140 H (46-116) U/L Lactate Dehydrogenase (81-234) U/L Troponin I < 0.050 (0.000-0.056) ng/mL C-Reactive Protein < 0.20 (0.00-0.90) mg/dL Total Protein 6.9 (6.4-8.2) g/dL Albumin 3.7 (3.4-5.0) g/dL Globulin 3.2 (2.6-4.0) g/dL Albumin/Globulin Ratio 1.2 (0.9-1.6) Lipase 64 L (73-393) U/L SARS-CoV-2 RNA (SARITA) (NEGATIVE) 09/02/20 09/02/20 09/02/20 Range/Units 09:55 13:46 14:25 WBC (4.0-11.0) K/uL RBC (4.50-5.90) M/uL Hgb (13.0-17.0) g/dL Hct (38.0-50.0) % MCV (80.0-98.0) fL MCH (27.0-32.0) pg MCHC (31.0-37.0) g/dL RDW Std Deviation (28.0-62.0) fl RDW Coeff of Eliazar (11.0-15.0) % Plt Count (150-400) K/uL MPV (7.40-12.00) fL Neut % (Auto) (48.0-80.0) % Lymph % (Auto) (16.0-40.0) % [place] % (Auto) (0.0-15.0) % Eos % (Auto) (0.0-7.0) % Baso % (Auto) (0.0-1.5) % Neut # (Auto) (1.4-5.7) K/uL Lymph # (Auto) (0.6-2.4) K/uL [place] # (Auto) (0.0-0.8) K/uL Eos # (Auto) (0.0-0.7) K/uL Baso # (Auto) (0.0-0.1) K/uL Nucleated RBC % /100WBC Nucleated RBCs # K/uL Lactate (0.20-2.00) mmol/L Sodium (136-148) mmol/L Potassium (3.5-5.1) mmol/L Chloride (98-107) mmol/L Carbon Dioxide (21.0-32.0) mmol/L BUN (7.0-18.0) mg/dL Creatinine (0.8-1.3) mg/dL Est Cr Clr Drug Dosing mL/min Estimated GFR (MDRD) ml/min Glucose (74-106) mg/dL POC Glucose 148 H (60-110) mg/dL Calcium (8.5-10.1) mg/dL Phosphorus (2.6-4.7) mg/dL Magnesium (1.8-2.4) mg/dL Total Bilirubin (0.2-1.0) mg/dL AST (15-37) IU/L ALT (14-63) IU/L Alkaline Phosphatase (46-116) U/L Lactate Dehydrogenase 193 (81-234) U/L Troponin I (0.000-0.056) ng/mL C-Reactive Protein (0.00-0.90) mg/dL Total Protein (6.4-8.2) g/dL Albumin (3.4-5.0) g/dL Globulin (2.6-4.0) g/dL Albumin/Globulin Ratio (0.9-1.6) Lipase (73-393) U/L SARS-CoV-2 RNA (SARITA) NEGATIVE (NEGATIVE) 09/02/20 Range/Units 14:25 WBC (4.0-11.0) K/uL RBC (4.50-5.90) M/uL Hgb (13.0-17.0) g/dL Hct (38.0-50.0) % MCV (80.0-98.0) fL MCH (27.0-32.0) pg MCHC (31.0-37.0) g/dL RDW Std Deviation (28.0-62.0) fl RDW Coeff of Eliazar (11.0-15.0) % Plt Count (150-400) K/uL MPV (7.40-12.00) fL Neut % (Auto) (48.0-80.0) % Lymph % (Auto) (16.0-40.0) % [place] % (Auto) (0.0-15.0) % Eos % (Auto) (0.0-7.0) % Baso % (Auto) (0.0-1.5) % Neut # (Auto) (1.4-5.7) K/uL Lymph # (Auto) (0.6-2.4) K/uL [place] # (Auto) (0.0-0.8) K/uL Eos # (Auto) (0.0-0.7) K/uL Baso # (Auto) (0.0-0.1) K/uL Nucleated RBC % /100WBC Nucleated RBCs # K/uL Lactate 1.0 (0.20-2.00) mmol/L Sodium (136-148) mmol/L Potassium (3.5-5.1) mmol/L Chloride (98-107) mmol/L Carbon Dioxide (21.0-32.0) mmol/L BUN (7.0-18.0) mg/dL Creatinine (0.8-1.3) mg/dL Est Cr Clr Drug Dosing mL/min Estimated GFR (MDRD) ml/min Glucose (74-106) mg/dL POC Glucose (60-110) mg/dL Calcium (8.5-10.1) mg/dL Phosphorus (2.6-4.7) mg/dL Magnesium (1.8-2.4) mg/dL Total Bilirubin (0.2-1.0) mg/dL AST (15-37) IU/L ALT (14-63) IU/L Alkaline Phosphatase (46-116) U/L Lactate Dehydrogenase (81-234) U/L Troponin I (0.000-0.056) ng/mL C-Reactive Protein (0.00-0.90) mg/dL Total Protein (6.4-8.2) g/dL Albumin (3.4-5.0) g/dL Globulin (2.6-4.0) g/dL Albumin/Globulin Ratio (0.9-1.6) Lipase (73-393) U/L SARS-CoV-2 RNA ([facility]) (NEGATIVE) Result Diagrams: 09/02/20 09:45 09/02/20 09:45 Sepsis Event Note - Evaluation Sepsis Screening Result: No Definite Risk - Focused Exam Vital Signs: Vital Signs Temp Pulse Resp BP Pulse Ox 09/02/20 16:00 79 17 166/74 H 100 09/02/20 15:00 71 17 140/60 97 09/02/20 14:00 79 17 131/70 96 09/02/20 09:45 36.1 C 79 17 129/70 100 - Problem List (1) Dizziness SNOMED Code(s): 319784481, 883962655 ICD Code: R42 - DIZZINESS AND GIDDINESS Status: Acute Current Visit: Yes (2) Gout SNOMED Code(s): 25488821 ICD Code: M10.9 - GOUT, UNSPECIFIED Status: Acute Current Visit: Yes (3) BPH (benign prostatic hyperplasia) SNOMED Code(s): 712899316 ICD Code: N40.0 - BENIGN PROSTATIC HYPERPLASIA WITHOUT LOWER URINRY TRACT SYMP Status: Acute Current Visit: Yes (4) Vomiting SNOMED Code(s): 520584925 ICD Code: R11.10 - VOMITING, UNSPECIFIED Status: Acute Current Visit: Yes Qualifiers: Vomiting type: unspecified Vomiting Intractability: intractable Nausea presence: with nausea Qualified Code(s): R11.2 - Nausea with vomiting, unspecified Problem List Initiated/Reviewed/Updated: Yes Orders Last 24hrs: Active Orders 24 hr Category Date Time Status Patient Status [ADT] Routine ADT 09/02/20 15:50 Active Cardiac Monitoring [RC] . DIRECTED Care 09/02/20 09:59 Active EKG Documentation Completion [RC] STAT Care 09/02/20 09:58 Active Orthostatic Vital Signs [RC] ASDIRECTED Care 09/02/20 15:16 Active Oxygen Therapy [RC] PRN Care 09/02/20 16:07 Ordered Pulse Oximetry [RC] ASDIRECTED Care 09/02/20 09:59 Active Telemetry Monitoring [Cardiac Monitoring] [RC] . Care 09/02/20 16:08 Ordered DIRECTED Up With Assistance [RC] ASDIRECTED Care 09/02/20 16:07 Ordered VTE/DVT Education [RC] PER UNIT ROUTINE Care 09/02/20 16:07 Ordered Vital Signs [RC] Q4H Care 09/02/20 16:07 Ordered Clear Liquid Diet [DIET] Diet 09/02/20 Lunch Ordered Ang Head [CT] Urgent Exams 09/02/20 16:09 Ordered Ang Neck [CT] Urgent Exams 09/02/20 16:09 Ordered CBC WITH AUTO DIFF [HEME] AM Lab 09/03/20 05:11 Ordered COMPREHENSIVE METABOLIC PN,CMP [CHEM] AM Lab 09/03/20 05:11 Ordered PROCALCITONIN [REF] Stat Lab 09/02/20 09:45 Received TROPONIN I [CHEM] Urgent Lab 09/02/20 16:10 Ordered UA W/ARGELIA RFLX IF INDICATED [URIN] Stat Lab 09/02/20 10:00 Ordered Acetaminophen [TylenoL] Med 09/02/20 16:07 Ordered 650 mg PO Q4H PRN Enoxaparin [Lovenox] Med 09/02/20 16:15 Ordered 40 mg SUBCUT Q24H Lactated Ringers @ 125 MLS/HR(1,000ml) Med 09/02/20 16:15 Ordered Lactated Ringers [Ringers, Lactated] 1,000 ml IV ASDIRECTED Ondansetron [Zofran] Med 09/02/20 16:07 Ordered 4 mg IVPUSH Q4H PRN Phosphorus #1 [Neutra-Phos] Med 09/02/20 18:00 Ordered 250 mg PO QID Sodium Chloride 0.9% [Saline Flush] Med 09/02/20 09:58 Active 10 ml FLUSH ASDIRECTED PRN Sodium Chloride 0.9% [Saline Flush] Med 09/02/20 09:58 Active 2.5 ml FLUSH ASDIRECTED PRN Saline Lock Insert [OM.PC] Stat Oth 09/02/20 09:59 Ordered Resuscitation Status Routine Resus Stat 09/02/20 16:07 Ordered Medication Orders Acetaminophen (Tylenol) 650 mg PO Q4H PRN PRN Reason: Pain (Mild 1-3)/fever Enoxaparin Sodium (Lovenox) 40 mg SUBCUT Q24H KEATON Lactated Ringer's (Ringers, Lactated) 1,000 mls @ 125 mls/hr IV ASDIRECTED KEATON Ondansetron HCl (Zofran) 4 mg IVPUSH Q4H PRN PRN Reason: Nausea Sodium Chloride (Saline Flush) 10 ml FLUSH ASDIRECTED PRN PRN Reason: Keep Vein Open Last Admin: 09/02/20 13:09 Dose: 10 ml Documented by: TOSHIA Sodium Chloride (Saline Flush) 2.5 ml FLUSH ASDIRECTED PRN PRN Reason: Keep Vein Open Last Admin: 09/02/20 13:09 Dose: 2.5 ml Documented by: Admin: 09/02/20 10:08 Dose: 2.5 ml Documented by: LIZ Sodium Phosphate (Neutra-Phos) 250 mg PO QID KEATON Stop: 09/03/20 12:01 Assessment/Plan Comment:: Assessment and Plan: 1. Dizziness: - Admit to med/surg. Patient on telemetry. EKG unremarkable. Patient received 2 L IV fluids bolus in ER. Will start IV LR @ 125 cc/hr. Will order CTA head and neck today. - CT head done on 09/01/20 was negative. Lactate level normalized after IV fluids bolus. CXR unremarkable. COVID-19 test negative. 2. Nausea, vomiting and abdominal pain: - CT abd was negative. Will treat with IV zofran prn and IV LR's. Clear liquid diet for now. 3. DVT prophylaxis: - Lovenox 40 mg subcut qd. 4. Past medical history of gout and BPH: - Continue home medications.
[2020-09-02 17:03] LABS: HEMOGLOBIN A1C 5.8 % (4.5-6.2)
--- NOTE | 2020-09-02 17:11 | CT ---
INDICATION: Dizziness. TECHNIQUE: High resolution axial CT images acquired through the head and neck following rapid intravenous administration of iodinated contrast. Multiplanar MIPS of cranial and cervical vasculature performed. COMPARISON: Noncontrast head CT 09/01/2020. FINDINGS: There is scattered intracranial atherosclerotic disease. Most notably, the distal intracranial vertebral arteries and proximal basilar artery are occluded. The small basilar artery likely fills retrograde via the posterior communicating arteries. No aneurysm or vascular malformation is identified. In the neck, there is atherosclerotic plaque at both carotid bifurcations with mild stenoses on both sides, less than 50 percent by NASCET criteria. There is a focal large soft plaque in the superior wall of the beginning of the descending aorta. 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 Small basilar artery likely fills in a retrograde manner via the posterior communicating arteries. Hunter Oconnor MD [employer] [facility] Please note that all CT scans at this facility use dose modulation, iterative reconstruction, and/or weight-based dosing when appropriate to reduce radiation dose to as low as reasonably achievable. Dictated by Hunter Oconnor MD @ Sep 02 2020 11:15PM Signed by Dr. Hunter Oconnor @ Sep 02 2020 11:21PM
[2020-09-02] MEDS ORDERED: Phosphorus #1 250 MG Tab PO SCH (18:00)
[2020-09-02] MEDS ORDERED: Aspirin 81 MG Tab.Chew PO SCH (19:00)
[2020-09-02] MEDS ORDERED: Heparin Sod,Pork In 0.45% Nacl 25,000 UNIT/500 ML IV.SOLN IV SCH (20:15)
--- NOTE | 2020-09-02 20:41 | PCM.DCSUM1 ---
Discharge Summary - Hospital Course Free Text/Narrative:: 69-year-old male admitted with dizziness. He has a PMH of gout and BPH. Patient presented with dizziness, nausea and vomiting for the past 3 days approximately. EKG was unremarkable. 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 Bilateral posterior cerebral arteries are patent and fill via patent posterior communicating arteries. Neurologist at [facility] in [place], [place] was contacted who recommended transfer to facility with interventional neurovascular capability. Neurologist at [facility] was then contacted who reviewed case with interventional radiology and recommended transferring to [facility]. Neurologist at [facility] was then contacted and stated that acute thrombectomy is not indicated at this time and recommended starting patient on heparin drip lower protocol without loading dose for now and also perform frequent neuro checks q1h. If any neurological decline is observed then patient should be transferred for acute stroke. As our facility does not have neurology coverage at this time, [facility] was then called again and discussed recommendations with neurologist Dr. Rutherford who said transfer [facility] would be appropriate. Critical care physician Dr. Bloom was then contacted who agreed to accept patient with neurology as consult. Neurologist recommended transfer by flight. Patient discharged in stable condition with heparin drip via flight to [facility]. - Discharge Data Discharge Date: 09/02/20 Discharge Disposition: DC/Tfer to Acute Hospital 02 Condition: Stable - Referral to Home Health Primary Care Physician: PCP None - Discharge Diagnosis/Problem(s) (1) Dizziness SNOMED Code(s): 250810653, 833127010 ICD Code: R42 - DIZZINESS AND GIDDINESS Status: Acute Current Visit: Yes (2) Gout SNOMED Code(s): 19912705 ICD Code: M10.9 - GOUT, UNSPECIFIED Status: Acute Current Visit: Yes (3) BPH (benign prostatic hyperplasia) SNOMED Code(s): 822092821 ICD Code: N40.0 - BENIGN PROSTATIC HYPERPLASIA WITHOUT LOWER URINRY TRACT SYMP Status: Acute Current Visit: Yes (4) Vomiting SNOMED Code(s): 884613459 ICD Code: R11.10 - VOMITING, UNSPECIFIED Status: Acute Current Visit: Yes Qualifiers: Vomiting type: unspecified Vomiting Intractability: intractable Nausea presence: with nausea Qualified Code(s): R11.2 - Nausea with vomiting, unspecified - Patient Instructions Diet: Usual Diet as Tolerated Activity: As Tolerated Notify Provider of: Fever, Increased Pain, Swelling and Redness, Drainage, Nausea and/or Vomiting - Discharge Plan *PRESCRIPTION DRUG MONITORING PROGRAM REVIEWED*: Not Applicable *COPY OF PRESCRIPTION DRUG MONITORING REPORT IN PATIENT TONO: Not Applicable Home Medications: Home Meds allopurinoL [Zyloprim] 1 tab PO DAILY 11/14/15 [History] Diclofenac Potassium [Zipsor] PO DAILY 10/30/19 [History] Oxygen Therapy Mode: Room Air Forms: ED Department Discharge Referrals: PCP,None [Primary Care Provider] - - Discharge Summary/Plan Comment DC Time >30 min.: No - Patient Data Vitals - Most Recent: Last Vital Signs Temp 36.8 C 09/02/20 19:59 Pulse 92 09/02/20 19:59 Resp 17 09/02/20 19:59 BP 139/58 L 09/02/20 19:59 Pulse Ox 97 09/02/20 19:59 Orthostatic Blood Pressure [ 147/70 Supine] Orthostatic Blood Pressure [ 171/89 Sitting] Weight - Most Recent: 90.718 kg Lab Results - Last 24 hrs: Laboratory Results - last 24 hr 09/02/20 09/02/20 09/02/20 Range/Units 09:45 09:45 09:45 WBC 10.52 (4.0-11.0) K/uL RBC 4.48 L (4.50-5.90) M/uL Hgb 14.0 (13.0-17.0) g/dL Hct 42.2 (38.0-50.0) % MCV 94.2 (80.0-98.0) fL MCH 31.3 (27.0-32.0) pg MCHC 33.2 (31.0-37.0) g/dL RDW Std Deviation 49.1 (28.0-62.0) fl RDW Coeff of Eliazar 14 (11.0-15.0) % Plt Count 359 (150-400) K/uL MPV 9.20 (7.40-12.00) fL Neut % (Auto) 66.3 (48.0-80.0) % Lymph % (Auto) 26.6 (16.0-40.0) % [place] % (Auto) 6.4 (0.0-15.0) % Eos % (Auto) 0.4 (0.0-7.0) % Baso % (Auto) 0.3 (0.0-1.5) % Neut # (Auto) 7.0 H (1.4-5.7) K/uL Lymph # (Auto) 2.8 H (0.6-2.4) K/uL [place] # (Auto) 0.7 (0.0-0.8) K/uL Eos # (Auto) 0.0 (0.0-0.7) K/uL Baso # (Auto) 0.0 (0.0-0.1) K/uL Nucleated RBC % 0.0 /100WBC Nucleated RBCs # 0 K/uL Lactate 3.5 H* (0.20-2.00) mmol/L Sodium 138 (136-148) mmol/L Potassium 3.7 (3.5-5.1) mmol/L Chloride 103 (98-107) mmol/L Carbon Dioxide 19.9 L (21.0-32.0) mmol/L BUN 13 (7.0-18.0) mg/dL Creatinine 1.0 (0.8-1.3) mg/dL Est Cr Clr Drug Dosing 74.01 mL/min Estimated GFR (MDRD) > 60.0 ml/min Glucose 180 H (74-106) mg/dL POC Glucose (60-110) mg/dL Hemoglobin A1c (4.5-6.2) % Calcium 9.1 (8.5-10.1) mg/dL Phosphorus 1.7 L (2.6-4.7) mg/dL Magnesium 1.9 (1.8-2.4) mg/dL Total Bilirubin 0.6 (0.2-1.0) mg/dL AST 16 (15-37) IU/L ALT 30 (14-63) IU/L Alkaline Phosphatase 140 H (46-116) U/L Lactate Dehydrogenase (81-234) U/L Troponin I < 0.050 (0.000-0.056) ng/mL C-Reactive Protein < 0.20 (0.00-0.90) mg/dL Total Protein 6.9 (6.4-8.2) g/dL Albumin 3.7 (3.4-5.0) g/dL Globulin 3.2 (2.6-4.0) g/dL Albumin/Globulin Ratio 1.2 (0.9-1.6) Triglycerides (0-200) mg/dL Cholesterol (50-200) mg/dL LDL Cholesterol, Calc (60-180) mg/dL VLDL Cholesterol (5-55) mg/dL HDL Cholesterol (40-60) mg/dL Cholesterol/HDL Ratio (3.3-6.0) Lipase 64 L (73-393) U/L TSH 3rd Generation (0.36-3.74) uIU/mL Urine Color Urine Appearance Urine pH (5.0-8.0) Ur Specific [place] (1.001-1.035) Urine Protein (NEGATIVE) mg/dL Urine Glucose (UA) (NEGATIVE) mg/dL Urine Ketones (NEGATIVE) mg/dL Urine Occult Blood (NEGATIVE) Urine Nitrite (NEGATIVE) Urine Bilirubin (NEGATIVE) Urine Urobilinogen (<2.0) EU/dL Ur Leukocyte Esterase (NEGATIVE) SARS-CoV-2 RNA (SARITA) (NEGATIVE) 09/02/20 09/02/20 09/02/20 Range/Units 09:45 09:55 13:46 WBC (4.0-11.0) K/uL RBC (4.50-5.90) M/uL Hgb (13.0-17.0) g/dL Hct (38.0-50.0) % MCV (80.0-98.0) fL MCH (27.0-32.0) pg MCHC (31.0-37.0) g/dL RDW Std Deviation (28.0-62.0) fl RDW Coeff of Eliazar (11.0-15.0) % Plt Count (150-400) K/uL MPV (7.40-12.00) fL Neut % (Auto) (48.0-80.0) % Lymph % (Auto) (16.0-40.0) % [place] % (Auto) (0.0-15.0) % Eos % (Auto) (0.0-7.0) % Baso % (Auto) (0.0-1.5) % Neut # (Auto) (1.4-5.7) K/uL Lymph # (Auto) (0.6-2.4) K/uL [place] # (Auto) (0.0-0.8) K/uL Eos # (Auto) (0.0-0.7) K/uL Baso # (Auto) (0.0-0.1) K/uL Nucleated RBC % /100WBC Nucleated RBCs # K/uL Lactate (0.20-2.00) mmol/L Sodium (136-148) mmol/L Potassium (3.5-5.1) mmol/L Chloride (98-107) mmol/L Carbon Dioxide (21.0-32.0) mmol/L BUN (7.0-18.0) mg/dL Creatinine (0.8-1.3) mg/dL Est Cr Clr Drug Dosing mL/min Estimated GFR (MDRD) ml/min Glucose (74-106) mg/dL POC Glucose 148 H (60-110) mg/dL Hemoglobin A1c 5.8 (4.5-6.2) % Calcium (8.5-10.1) mg/dL Phosphorus (2.6-4.7) mg/dL Magnesium (1.8-2.4) mg/dL Total Bilirubin (0.2-1.0) mg/dL AST (15-37) IU/L ALT (14-63) IU/L Alkaline Phosphatase (46-116) U/L Lactate Dehydrogenase (81-234) U/L Troponin I (0.000-0.056) ng/mL C-Reactive Protein (0.00-0.90) mg/dL Total Protein (6.4-8.2) g/dL Albumin (3.4-5.0) g/dL Globulin (2.6-4.0) g/dL Albumin/Globulin Ratio (0.9-1.6) Triglycerides (0-200) mg/dL Cholesterol (50-200) mg/dL LDL Cholesterol, Calc (60-180) mg/dL VLDL Cholesterol (5-55) mg/dL HDL Cholesterol (40-60) mg/dL Cholesterol/HDL Ratio (3.3-6.0) Lipase (73-393) U/L TSH 3rd Generation (0.36-3.74) uIU/mL Urine Color Urine Appearance Urine pH (5.0-8.0) Ur Specific [place] (1.001-1.035) Urine Protein (NEGATIVE) mg/dL Urine Glucose (UA) (NEGATIVE) mg/dL Urine Ketones (NEGATIVE) mg/dL Urine Occult Blood (NEGATIVE) Urine Nitrite (NEGATIVE) Urine Bilirubin (NEGATIVE) Urine Urobilinogen (<2.0) EU/dL Ur Leukocyte Esterase (NEGATIVE) SARS-CoV-2 RNA (SARITA) NEGATIVE (NEGATIVE) 09/02/20 09/02/20 09/02/20 Range/Units 14:25 14:25 17:30 WBC (4.0-11.0) K/uL RBC (4.50-5.90) M/uL Hgb (13.0-17.0) g/dL Hct (38.0-50.0) % MCV (80.0-98.0) fL MCH (27.0-32.0) pg MCHC (31.0-37.0) g/dL RDW Std Deviation (28.0-62.0) fl RDW Coeff of Eliazar (11.0-15.0) % Plt Count (150-400) K/uL MPV (7.40-12.00) fL Neut % (Auto) (48.0-80.0) % Lymph % (Auto) (16.0-40.0) % [place] % (Auto) (0.0-15.0) % Eos % (Auto) (0.0-7.0) % Baso % (Auto) (0.0-1.5) % Neut # (Auto) (1.4-5.7) K/uL Lymph # (Auto) (0.6-2.4) K/uL [place] # (Auto) (0.0-0.8) K/uL Eos # (Auto) (0.0-0.7) K/uL Baso # (Auto) (0.0-0.1) K/uL Nucleated RBC % /100WBC Nucleated RBCs # K/uL Lactate 1.0 (0.20-2.00) mmol/L Sodium (136-148) mmol/L Potassium (3.5-5.1) mmol/L Chloride (98-107) mmol/L Carbon Dioxide (21.0-32.0) mmol/L BUN (7.0-18.0) mg/dL Creatinine (0.8-1.3) mg/dL Est Cr Clr Drug Dosing mL/min Estimated GFR (MDRD) ml/min Glucose (74-106) mg/dL POC Glucose (60-110) mg/dL Hemoglobin A1c (4.5-6.2) % Calcium (8.5-10.1) mg/dL Phosphorus (2.6-4.7) mg/dL Magnesium (1.8-2.4) mg/dL Total Bilirubin (0.2-1.0) mg/dL AST (15-37) IU/L ALT (14-63) IU/L Alkaline Phosphatase (46-116) U/L Lactate Dehydrogenase 193 (81-234) U/L Troponin I (0.000-0.056) ng/mL C-Reactive Protein (0.00-0.90) mg/dL Total Protein (6.4-8.2) g/dL Albumin (3.4-5.0) g/dL Globulin (2.6-4.0) g/dL Albumin/Globulin Ratio (0.9-1.6) Triglycerides (0-200) mg/dL Cholesterol (50-200) mg/dL LDL Cholesterol, Calc (60-180) mg/dL VLDL Cholesterol (5-55) mg/dL HDL Cholesterol (40-60) mg/dL Cholesterol/HDL Ratio (3.3-6.0) Lipase (73-393) U/L TSH 3rd Generation (0.36-3.74) uIU/mL Urine Color YELLOW Urine Appearance CLEAR Urine pH 7.0 (5.0-8.0) Ur Specific [place] 1.010 (1.001-1.035) Urine Protein NEGATIVE (NEGATIVE) mg/dL Urine Glucose (UA) NEGATIVE (NEGATIVE) mg/dL Urine Ketones 15 H (NEGATIVE) mg/dL Urine Occult Blood NEGATIVE (NEGATIVE) Urine Nitrite NEGATIVE (NEGATIVE) Urine Bilirubin NEGATIVE (NEGATIVE) Urine Urobilinogen 0.2 (<2.0) EU/dL Ur Leukocyte Esterase NEGATIVE (NEGATIVE) SARS-CoV-2 RNA (SARITA) (NEGATIVE) 09/02/20 09/02/20 Range/Units 18:27 18:28 WBC (4.0-11.0) K/uL RBC (4.50-5.90) M/uL Hgb (13.0-17.0) g/dL Hct (38.0-50.0) % MCV (80.0-98.0) fL MCH (27.0-32.0) pg MCHC (31.0-37.0) g/dL RDW Std Deviation (28.0-62.0) fl RDW Coeff of Eliazar (11.0-15.0) % Plt Count (150-400) K/uL MPV (7.40-12.00) fL Neut % (Auto) (48.0-80.0) % Lymph % (Auto) (16.0-40.0) % [place] % (Auto) (0.0-15.0) % Eos % (Auto) (0.0-7.0) % Baso % (Auto) (0.0-1.5) % Neut # (Auto) (1.4-5.7) K/uL Lymph # (Auto) (0.6-2.4) K/uL [place] # (Auto) (0.0-0.8) K/uL Eos # (Auto) (0.0-0.7) K/uL Baso # (Auto) (0.0-0.1) K/uL Nucleated RBC % /100WBC Nucleated RBCs # K/uL Lactate (0.20-2.00) mmol/L Sodium (136-148) mmol/L Potassium (3.5-5.1) mmol/L Chloride (98-107) mmol/L Carbon Dioxide (21.0-32.0) mmol/L BUN (7.0-18.0) mg/dL Creatinine (0.8-1.3) mg/dL Est Cr Clr Drug Dosing mL/min Estimated GFR (MDRD) ml/min Glucose (74-106) mg/dL POC Glucose (60-110) mg/dL Hemoglobin A1c (4.5-6.2) % Calcium (8.5-10.1) mg/dL Phosphorus (2.6-4.7) mg/dL Magnesium (1.8-2.4) mg/dL Total Bilirubin (0.2-1.0) mg/dL AST (15-37) IU/L ALT (14-63) IU/L Alkaline Phosphatase (46-116) U/L Lactate Dehydrogenase (81-234) U/L Troponin I < 0.050 (0.000-0.056) ng/mL C-Reactive Protein (0.00-0.90) mg/dL Total Protein (6.4-8.2) g/dL Albumin (3.4-5.0) g/dL Globulin (2.6-4.0) g/dL Albumin/Globulin Ratio (0.9-1.6) Triglycerides 160 (0-200) mg/dL Cholesterol 208 H (50-200) mg/dL LDL Cholesterol, Calc 140 (60-180) mg/dL VLDL Cholesterol 32 (5-55) mg/dL HDL Cholesterol 36 L (40-60) mg/dL Cholesterol/HDL Ratio 5.8 (3.3-6.0) Lipase (73-393) U/L TSH 3rd Generation 1.31 (0.36-3.74) uIU/mL Urine Color Urine Appearance Urine pH (5.0-8.0) Ur Specific [place] (1.001-1.035) Urine Protein (NEGATIVE) mg/dL Urine Glucose (UA) (NEGATIVE) mg/dL Urine Ketones (NEGATIVE) mg/dL Urine Occult Blood (NEGATIVE) Urine Nitrite (NEGATIVE) Urine Bilirubin (NEGATIVE) Urine Urobilinogen (<2.0) EU/dL Ur Leukocyte Esterase (NEGATIVE) SARS-CoV-2 RNA (SARITA) (NEGATIVE) Med Orders - Current: Current Medications Acetaminophen (Tylenol) 650 mg PO Q4H PRN PRN Reason: Pain (Mild 1-3)/fever Allopurinol (Zyloprim) 300 mg PO DAILY [facility] Aspirin (Aspirin) 81 mg PO DAILY [facility] Last Admin: 09/02/20 19:56 Dose: 81 mg Documented by: Atorvastatin Calcium (Lipitor) 80 mg PO BEDTIME [facility] Enoxaparin Sodium (Lovenox) 40 mg SUBCUT Q24H [facility] Lactated Ringer's (Ringers, Lactated) 1,000 mls @ 125 mls/hr IV ASDIRECTED [facility] Last Admin: 09/02/20 18:01 Dose: 125 mls/hr Documented by: Heparin Sodium/Sodium Chloride (Heparin-1/2ns 25,000 Units/500) 25,000 unit in 500 mls @ 32.658 mls/hr IV TITRATE KEATON; Protocol Ondansetron HCl (Zofran) 4 mg IVPUSH Q4H PRN PRN Reason: Nausea Pantoprazole Sodium (Protonix) 40 mg PO DAILY [facility] Sodium Chloride (Saline Flush) 10 ml FLUSH ASDIRECTED PRN PRN Reason: Keep Vein Open Last Admin: 09/02/20 13:09 Dose: 10 ml Documented by: Sodium Chloride (Saline Flush) 2.5 ml FLUSH ASDIRECTED PRN PRN Reason: Keep Vein Open Last Admin: 09/02/20 13:09 Dose: 2.5 ml Documented by: Sodium Phosphate (Neutra-Phos) 250 mg PO QID [facility] Stop: 09/03/20 12:01 Last Admin: 09/02/20 18:01 Dose: 250 mg Documented by: Discontinued Medications Al Hydroxide/Mg Hydroxide 15 (ml/ Lidocaine HCl 5 ml) 0 ml PO ONETIME ONE Stop: 09/02/20 15:24 Last Admin: 09/02/20 16:21 Dose: 1 each Documented by: Enoxaparin Sodium (Lovenox) 40 mg SUBCUT Q24H [facility] Last Admin: 09/02/20 16:58 Dose: Not Given Documented by: Famotidine (Pepcid) 20 mg IVPUSH ONETIME ONE Stop: 09/02/20 09:59 Last Admin: 09/02/20 13:08 Dose: 20 mg Documented by: Sodium Chloride (Normal Saline) 1,000 mls @ 999 mls/hr IV .Bolus ONE Stop: 09/02/20 10:58 Last Admin: 09/02/20 10:06 Dose: 999 mls/hr Documented by: Sodium Chloride (Normal Saline) 1,000 mls @ 999 mls/hr IV .Bolus ONE Stop: 09/02/20 12:21 Last Admin: 09/02/20 13:08 Dose: 999 mls/hr Documented by: Iopamidol (Isovue Multipack-370 (76%)) 100 ml IVPUSH ONETIME ONE Stop: 09/02/20 12:09 Last Admin: 09/02/20 12:09 Dose: 100 ml Documented by: Iopamidol (Isovue Multipack-370 (76%)) 100 ml IVPUSH ONETIME ONE Stop: 09/02/20 16:48 Last Admin: 09/02/20 16:48 Dose: 100 ml Documented by: Lorazepam (Ativan) 0.5 mg IVPUSH ONETIME ONE Stop: 09/02/20 09:59 Last Admin: 09/02/20 10:24 Dose: 0.5 mg Documented by: Lorazepam (Ativan) 0.5 mg IVPUSH ONETIME ONE Stop: 09/02/20 15:24 Last Admin: 09/02/20 16:21 Dose: 0.5 mg Documented by: Ondansetron HCl (Zofran) 4 mg IVPUSH ONETIME ONE Stop: 09/02/20 09:59 Last Admin: 09/02/20 10:24 Dose: 4 mg Documented by: Ondansetron HCl (Zofran) 4 mg IVPUSH ONETIME ONE Stop: 09/02/20 15:24 Last Admin: 09/02/20 16:19 Dose: 4 mg Documented by:
[2020-09-02 20:53] VITALS: BP 154/83; PULSE 90
[2020-09-02] MEDS ORDERED: atorvaSTATin 40 MG Tab PO SCH (21:00)
--- NOTE | 2020-09-02 23:22 | CT ---
INDICATION: Dizziness. TECHNIQUE: High resolution axial CT images acquired through the head and neck following rapid intravenous administration of iodinated contrast. Multiplanar MIPS of cranial and cervical vasculature performed. COMPARISON: Noncontrast head CT 09/01/2020. FINDINGS: There is scattered intracranial atherosclerotic disease. Most notably, the distal intracranial vertebral arteries and proximal basilar artery are occluded. The small basilar artery likely fills retrograde via the posterior communicating arteries. No aneurysm or vascular malformation is identified. In the neck, there is atherosclerotic plaque at both carotid bifurcations with mild stenoses on both sides, less than 50 percent by NASCET criteria. There is a focal large soft plaque in the superior wall of the beginning of the descending aorta. 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 Small basilar artery likely fills in a retrograde manner via the posterior communicating arteries. Hunter Oconnor MD Neurointerventional Radiologist [employer] [facility] Please note that all CT scans at this facility use dose modulation, iterative reconstruction, and/or weight-based dosing when appropriate to reduce radiation dose to as low as reasonably achievable. Dictated by Hunter Oconnor MD @ Sep 02 2020 11:21PM Signed by Dr. Hunter Oconnor @ Sep 02 2020 11:22PM
[2020-09-03] MEDS ORDERED: Allopurinol 300 MG Tab PO SCH (09:00)
[2020-09-03] MEDS ORDERED: Pantoprazole 40 MG Tab.CR PO SCH (09:00)
== END 2020-09-02 21:30 ==
LOC: MW.ED 09:37 → MW.MS 15:50
PROVIDERS: ADMIT Student in an Organized Health Care Education/Training Program; ATTEND Student in an Organized Health Care Education/Training Program
DX: R11.2 Nausea with vomiting, unspecified (principal); R42 Dizziness and giddiness; M10.9 Gout, unspecified; G89.29 Other chronic pain; Z98.890 Other specified postprocedural states; Z88.0 Allergy status to penicillin; Z79.899 Other long term (current) drug therapy; Z20.828 Contact with and (suspected) exposure to other viral communicable diseases
CPT/HCPCS: 36415; 70496; 70498; 71045; 74177; 80053; 80061; 81003; 82962; 83036; 83605; 83615; 83690; 83735; 84100; 84145; 84443; 84484; 85025; 85730; 86140; 87635; 93005; A9270; J1644; J2060; J2405; J3490; J7030; J7120; Q9967; 93010; 96374; 96375; 96376; 99283; 99285-25; U0002